=== PATIENT | female | born 1955 | race Two or more races ===

== ENCOUNTER 2018-05-20 10:38 | Emergency (ER) | payer BC ==
[~2018-05-20] VITALS: Ht 165.1 cm; Wt 68.0 kg
--- NOTE | 2018-05-20 10:40 | NUR ---
PT BIB SELF C/O LEFT SHOULDR PAIN, PT IS AAOX4, NOT IN RESPIRATORY DISTRESS, V/S STABLE, KEPT RESTED AND COMFORTABLE, DR. TREJO AT BEDSIDE FOR EVAL.
[2018-05-20 12:01] VITALS: BP 131/71
--- NOTE | 2018-05-20 12:01 | NUR ---
Patient discharged to home in stable condition. Written and verbal after care instructions given. Patient verbalizes understanding of instruction.
== END 2018-05-20 12:04 | disposition home or self-care (01) ==
LOC: ER 10:39
DX: S59.802A Other specified injuries of left elbow, initial encounter (principal); M25.422 Effusion, left elbow; E78.5 Hyperlipidemia, unspecified; E05.90 Thyrotoxicosis, unspecified without thyrotoxic crisis or storm; W18.39XA Other fall on same level, initial encounter; Y93.01 Activity, walking, marching and hiking; Y92.89 Other specified places as the place of occurrence of the external cause; Y99.8 Other external cause status
CPT/HCPCS: 73080; 99283; A4606; Z7610